=== PATIENT | male | born 1955 | race Caucasian/White ===

== ENCOUNTER 2020-12-18 10:57 | Day surgery (SDC) | payer OTHER, SELFPAY ==
[2020-12-15 13:48] VITALS: BMI 33.2
--- NOTE | 2020-12-16 15:05 | P.CONAN_ITS ---
Documented by User: Sidra Block 12/16/20 15:05 HPI - Anesthesia Eval Consult details Narrative: 65yo M for Colonoscopy PMFSH Past Medical History Medical History (Updated 12/18/20 @ 11:29 by Becca Garvin) Anxiety Diabetes Elevated cholesterol GERD (gastroesophageal reflux disease) HTN (hypertension) Oppositional defiant disorder Surgical History Surgical History H/O colonoscopy Social History Social History Patient Tobacco Use Status: Former Tobacco user Quit Date: >10 years ago Tobacco use type: Cigarette Use of substances other than those prescribed or required for medical reasons: No Advance Directives Information Provided: No Meds Allergies Allergy/AdvReac Type Severity Reaction Status Date / Time No Known Allergies Allergy Verified 12/18/20 10:58 Home Medications Medication Instructions Recorded Confirmed Last Taken Type alogliptin 6.25 mg PO DAILY 12/15/20 12/15/20 Unknown History atorvastatin 20 mg PO BEDTIME 12/15/20 12/15/20 Unknown History carbamazepine 600 mg PO BID 12/15/20 12/15/20 Unknown History insulin glargine [Lantus Solostar SUBCUT 12/15/20 12/15/20 Unknown History U-100 Insulin] lisinopril 5 mg PO DAILY 12/15/20 12/15/20 Unknown History metformin 1,000 mg PO BID 12/15/20 12/15/20 Unknown History multivitamin 1 tab PO DAILY 12/15/20 12/15/20 Unknown History omeprazole 20 mg PO DAILY 12/15/20 12/15/20 Unknown History trazodone 100 mg PO BEDTIME 12/15/20 12/15/20 Unknown History Exam Exam Date and Time: December 16, 2020 1505 Height,Weight and Vital Signs: Height 6 ft 3 in Weight 120.656 kg Assessment and Plan Assessment Anesthesia Assessment: Chart Reviewed Documented by User: Becca Garvin 12/18/20 11:33 [facility] Past Medical History Medical History (Updated 12/18/20 @ 11:29 by Becca Garvin) Anxiety Diabetes Elevated cholesterol GERD (gastroesophageal reflux disease) HTN (hypertension) Oppositional defiant disorder Family History Family history of problems with anesthesia: No Surgical History Surgical History H/O colonoscopy History of Problems with Anesthesia: No Social History Social History Patient Tobacco Use Status: Former Tobacco user Quit Date: >10 years ago Tobacco use type: Cigarette Use of substances other than those prescribed or required for medical reasons: No Advance Directives Information Provided: No Meds Allergies Allergy/AdvReac Type Severity Reaction Status Date / Time No Known Allergies Allergy Verified 12/18/20 10:58 Home Medications Medication Instructions Recorded Confirmed Last Taken Type alogliptin 6.25 mg PO DAILY 12/15/20 12/15/20 Unknown History atorvastatin 20 mg PO BEDTIME 12/15/20 12/15/20 Unknown History carbamazepine 600 mg PO BID 12/15/20 12/15/20 Unknown History insulin glargine [Lantus Solostar SUBCUT 12/15/20 12/15/20 Unknown History U-100 Insulin] lisinopril 5 mg PO DAILY 12/15/20 12/15/20 Unknown History metformin 1,000 mg PO BID 12/15/20 12/15/20 Unknown History multivitamin 1 tab PO DAILY 12/15/20 12/15/20 Unknown History omeprazole 20 mg PO DAILY 12/15/20 12/15/20 Unknown History trazodone 100 mg PO BEDTIME 12/15/20 12/15/20 Unknown History Exam Height,Weight and Vital Signs: Vital Signs Temp Pulse Resp BP Pulse Ox 12/18/20 11:24 98.1 F 105 H 18 140/88 H 95 Pertinent Lab Results Pertinent Lab Results: Lab Results 12/18/20 Range/Units 11:05 POC Glucose 133 H (60-115) mg/dL Airway Mallampati Class: II TM Dist: >3cm Neck ROM: Full Heart: RRR Lungs: CTAB Assessment and Plan Assessment Anesthesia Assessment: Anesthesia Plan Discussed and Chart Reviewed Final Anesthetic Review NPO: Yes ASA Class: III Final Preanesthetic Review: No Changes in Pt Med Stat, Meds/Allgs Chart Reviewed, Consent Obtained/Reviewed and Anes Risks/Benef Reviewed Patient Risk: Intermediate Procedure Risk: Low Assessment/Block/Sedation in SS: Assess/Block/Sedation-SS Anesthetic Plan Anesthetic Plan: MAC: Disposition: Standard PACU
[2020-12-18 11:17] LABS: Glucose, Whole Blood 133 mg/dL (60-115)
[2020-12-18 11:24] VITALS: BP 140/88; PULSE 105; RESP 18; TEMP 36.7; O2SAT 95
[2020-12-18] MEDS: Lactated Ringers 1,000 ML 100 ML IVCONT (11:25)
--- NOTE | 2020-12-18 11:35 | MHC.SHP ---
Pre-Procedural Eval Section A The patient is an INPATIENT: No Changes since office visit: No Cold of Flu in the past 2 weeks, No New Medical Problems, No Changes in Medication and No Patient answered all questions The History & Physical has been completed within 30 days and I have reviewed it.: Yes Section B Chief Complaint: screening Allergies: Allergies Allergy/AdvReac Type Severity Reaction Status Date / Time No Known Allergies Allergy Verified 12/18/20 10:58 Plan I have reviewed the history and physical and performed a pertinent physical examination on my patient. No changes have occurred unless specified.
--- NOTE | 2020-12-18 12:11 | PM.OP ---
Brief Operative Note Date of Service: 12/18/20 Pre-op diagnosis: screening Post-op diagnosis: same (colon polyps) Surgeon: Eusebio Vines Anesthesia: MAC Was an Care Team Coordinator Scheduler used for this Procedure?: No Estimated blood loss (mL): 0 Pathology: other (polyps x3) Condition: stable Disposition: PACU
[2020-12-18 12:15] VITALS: BP 120/74; PULSE 77; RESP 14; TEMP 36.3; O2SAT 96
[2020-12-18 12:28] VITALS: BP 147/89; PULSE 83; RESP 18; TEMP 36.3; O2SAT 96
--- NOTE | 2020-12-18 12:51 | OP_ITS ---
SURGEON: Eusebio Vines MD INDICATIONS: Colon cancer screening. PREOPERATIVE DIAGNOSIS: POSTOPERATIVE DIAGNOSIS: PROCEDURE PERFORMED: Colonoscopy to the terminal ileum with snare polypectomy. ESTIMATED BLOOD LOSS: COMPLICATIONS: ANESTHESIA: ASSISTANTS: SPECIMENS: MEDICATIONS: Monitored anesthesia care. DESCRIPTION OF PROCEDURE: History and physical performed. The risks and benefits of the procedure were explained to the patient. Informed consent was obtained. The patient was placed in the left lateral decubitus position. A digital rectal exam was performed and was found to be normal. The Olympus pediatric video colonoscope was introduced into the rectum and advanced to the cecum without difficulty. The cecum was identified by transillumination, palpation, and identification of ileocecal valve. Examination was performed and the scope was removed. He tolerated the procedure well and was taken to recovery area in stable condition. FINDINGS: The terminal ileum was examined and appeared normal. The visualized colonic mucosa was normal. The quality of the prep was poor with a large amount of formed stool and liquid stool that limited the sensitivity examination for detection of small polyps, this was washed and suctioned. A total of 3 polyps were identified and removed with a snare. All were sessile. 2 were located at 80 cm, one was located at 90 cm, all measured less than 10 mm. Retroflexed examination showed large internal hemorrhoids. IMPRESSION: 1. Colon polyps. 2. Limited examination. RECOMMENDATIONS: 1. Follow up the biopsy results. 2. Repeat examination in 6 to 12 months with 2-day prep. MD JOSEPH Anderson/ISABELA / [id number] [facility]
== END 2020-12-18 15:18 | disposition home or self-care (01) ==
PROVIDERS: PCP Internal Medicine; Visit Provider Internal Medicine Gastroenterology
PROC: 0DJD8ZZ Inspection of Lower Intestinal Tract, Via Natural or Artificial Opening Endoscopic (ICD-10-PCS; CPT 45378; principal; 2020-12-18 11:50)
DX: Z12.11 Encounter for screening for malignant neoplasm of colon (principal); D12.3 Benign neoplasm of transverse colon; D12.4 Benign neoplasm of descending colon; K64.8 Other hemorrhoids; K21.9 Gastro-esophageal reflux disease without esophagitis; I10 Essential (primary) hypertension; E11.9 Type 2 diabetes mellitus without complications; F91.3 Oppositional defiant disorder; E78.5 Hyperlipidemia, unspecified; Z79.4 Long term (current) use of insulin; Z79.899 Other long term (current) drug therapy; Z87.891 Personal history of nicotine dependence
CPT/HCPCS: 45385; 82947; 88305

== ENCOUNTER 2022-10-28 07:50 | Day surgery (SDC) | payer OTHER, SELFPAY ==
--- NOTE | 2022-10-27 10:04 | HO.ANESPROP2 ---
Documented by User: Sidra Block NP 10/27/22 10:05 HPI - Anesthesia Eval Consult details Narrative: 67yo M for Upper Endoscopy and Colonoscopy PMF Active Problems Active Problems: All Active Problems (Updated 12/18/20 @ 11:29 by Becca Garvin MD) Anxiety (Acute) Past Medical History Medical History (Updated 10/28/22 @ 08:29 by Jennifer Haskins RN) Anxiety Diabetes Elevated cholesterol GERD (gastroesophageal reflux disease) HTN (hypertension) Neuropathy Oppositional defiant disorder Family History Family history of problems with anesthesia: No Surgical History Surgical History H/O colonoscopy History of Problems with Anesthesia: No Social History Social History Patient Tobacco Use Status: Former Tobacco user Quit Date: >10 years ago Tobacco use type: Cigarette Use of substances other than those prescribed or required for medical reasons: No Are you DNR?: No Advance Directives: No Advance Directives Information Provided: Yes Recently lost weight without trying: No Nutrition Risks: No Nutritional Risk Meds Allergies Allergy/AdvReac Type Severity Reaction Status Date / Time No Known Allergies Allergy Verified 12/18/20 10:58 Home Medications Medication Instructions Recorded Confirmed Last Taken Type alogliptin 6.25 mg tablet 6.25 mg PO DAILY 12/15/20 12/15/20 Unknown History atorvastatin 20 mg tablet 20 mg PO BEDTIME 12/15/20 12/15/20 Unknown History carbamazepine 200 mg tablet 600 mg PO BID 12/15/20 12/15/20 Unknown History insulin glargine 100 unit/mL (3 subcut 12/15/20 12/15/20 Unknown History mL) subcutaneous pen (Lantus Solostar U-100 Insulin) lisinopril 5 mg tablet 5 mg PO DAILY 12/15/20 12/15/20 Unknown History metformin 500 mg tablet 1,000 mg PO BID 12/15/20 12/15/20 Unknown History multivitamin 1 tab PO DAILY 12/15/20 12/15/20 Unknown History omeprazole 20 mg tablet,delayed 20 mg PO DAILY 12/15/20 12/15/20 Unknown History release trazodone 100 mg tablet 100 mg PO BEDTIME 12/15/20 12/15/20 Unknown History Exam Exam Date and Time: October 27, 2022 1004 Assessment and Plan Assessment Anesthesia Assessment: Chart Reviewed Final Anesthetic Review Family History of Problems with Anesthesia: No History of Problems with Anesthesia: No Documented by User: Daria Mitchell MD 10/28/22 09:07 [facility] Past Medical History Medical History (Updated 10/28/22 @ 08:29 by Jennifer Haskins RN) Anxiety Diabetes Elevated cholesterol GERD (gastroesophageal reflux disease) HTN (hypertension) Neuropathy Oppositional defiant disorder Surgical History Surgical History H/O colonoscopy Social History Social History Patient Tobacco Use Status: Former Tobacco user Quit Date: >10 years ago Tobacco use type: Cigarette Use of substances other than those prescribed or required for medical reasons: No Are you DNR?: No Advance Directives: No Advance Directives Information Provided: Yes Recently lost weight without trying: No Nutrition Risks: No Nutritional Risk Meds Allergies Allergy/AdvReac Type Severity Reaction Status Date / Time No Known Allergies Allergy Verified 12/18/20 10:58 Home Medications Medication Instructions Recorded Confirmed Last Taken Type alogliptin 6.25 mg tablet 6.25 mg PO DAILY 12/15/20 12/15/20 Unknown History atorvastatin 20 mg tablet 20 mg PO BEDTIME 12/15/20 12/15/20 Unknown History carbamazepine 200 mg tablet 600 mg PO BID 12/15/20 12/15/20 Unknown History insulin glargine 100 unit/mL (3 subcut 12/15/20 12/15/20 Unknown History mL) subcutaneous pen (Lantus Solostar U-100 Insulin) lisinopril 5 mg tablet 5 mg PO DAILY 12/15/20 12/15/20 Unknown History metformin 500 mg tablet 1,000 mg PO BID 12/15/20 12/15/20 Unknown History multivitamin 1 tab PO DAILY 12/15/20 12/15/20 Unknown History omeprazole 20 mg tablet,delayed 20 mg PO DAILY 12/15/20 12/15/20 Unknown History release trazodone 100 mg tablet 100 mg PO BEDTIME 12/15/20 12/15/20 Unknown History Exam Airway Mallampati Class: III TM Dist: >3cm Neck ROM: Full Heart: rrr Lungs: cta Assessment and Plan Assessment Anesthesia Assessment: Anesthesia Plan Discussed Final Anesthetic Review NPO: Yes ASA Class: III Final Preanesthetic Review: No Changes in Pt Med Stat, Meds/Allgs Chart Reviewed, Consent Obtained/Reviewed and Anes Risks/Benef Reviewed Patient Risk: Intermediate Procedure Risk: Intermediate Anesthetic Plan Anesthetic Plan: MAC: Disposition: Standard PACU
--- OUTSIDE RECORDS SUMMARY | 2022-10-28 07:52 | XMS_ITS ---
Author Name Eusebio Vines Jr Address [address] [place] [address] [facility] Address [address] [place] [address] Care Team Providers Care Social Service Manager Name Role Phone Eusebio Vines Jr Unavailable PROBLEMS Type Condition ICD9-CM Code [id number] Code Onset Dates Condition Status SNOMED Code Problem Encounter for screening for malignant neoplasm of colon Z12.11 Active 865215988 Problem Gastroesophageal reflux disease without esophagitis K21.9 Active 85102086 5 Problem Encounter for other preprocedural examination Z01.818 Active 429252629 Problem intermediate designer (current) use of insulin Z79.4 Active [id number] ALLERGIES No Known Allergies ENCOUNTERS Encounter Location Date Diagnosis [facility] Outpatient [address] [place] [id number] Oct, [facility] [address] [facility] [address] [place] [phone] Sep, Gastroesophageal reflux disease without esophagitis K21.9 ; Encounter for screening for malignant neoplasm of colon Z12.11 and FPC (current) use of insulin Z79.[address] [facility] [address] [facility] [address] [place] [phone] Dec, [facility] Outpatient [address] [place] [id number] Dec, Colon cancer screening Z12.11 and Colon polyp K63.[address] [facility] [address] [facility] [address] [place] [phone] November, Encounter for other preprocedural examination Z01.818 ; Colon cancer screening Z12.11 and FPC (current) use of insulin Z79.[address] [facility] [address] [place] [address] November, [facility] [address] [place] [address] Aug, [facility] [address] [place] [phone] Aug, [facility] [address] [place] [address] Jul, [facility] Outpatient [address], [place] [phone] Jan, [facility] ER [address] [place], [place] [phone] Oct, IMMUNIZATIONS Vaccine Route Administration Date Status Influenza Unknown Mar 17, 2022 Administered Influenza Unknown Mar 17, 2020 Administered SOCIAL HISTORY Qualifiers Date Former Smoker REASON FOR REFERRAL FUNCTIONAL STATUS PLAN OF CARE Activity Details VITAL SIGNS Weight 268 lbs 2022-09-22 Weight 266 lbs 2020-12-03 Height 75 in 2022-09-22 Height 75 in 2020-12-03 BMI 33.49 kg/m2 2022-09-22 BMI 33.24 kg/m2 2020-12-03 Temperature 97.5 degrees Fahrenheit Temperature 98.0 degrees Fahrenheit Blood pressure systolic 00 mm Hg Blood pressure diastolic 00 mm Hg 2022-09 MEDICATIONS Medication Instructions Dosage Frequency Start Date End Date Duration Status Lisinopril 5 MG Orally Once a day TAKE 1 TABLET BY MOUTH EVERY DAY 24h Active Alcohol Prep 70 % USE EVERY DAY 30 Active Insulin Glargine 100 UNIT/ML as directed Active carBAMazepine 200 MG Orally Twice a day 3tablet 12h Active traZODone HCl 100 MG Orally Once a day 1 tablet at bedtime 24h 30 day(s) Active metFORMIN HCl 500 MG Orally EVERY MORNING TAKE 4 TABLET TWICE DAILY WITH BREAKFAST AND WITH DINNER Active Alogliptin Benzoate 6.25 MG as directed A ctive Atorvastatin Calcium 20 MG Orally Once a day 1 tablet 24h 30 day(s) Active metFORMIN HCl ER 500 MG TAKE 1 TABLET EVERY DAY 30 Active Multi-Vitamins - TAKE 1 TABLET EVERY DAY WITH FOOD 30 Active Omeprazole 20 MG TAKE 1 CAPSULE EVERY DAY BEFORE A MEAL 30 Active PROCEDURES Procedure Date Ordered Result Body Site BP NOT ASSESS PATIENT NOT ELIGIBLE December 03, 2020 TOBACCO NON-USER December 03, 2020 DOC RSN FOR NOT SCREEN/REC F/U HBP September 22, 2022 Pt scrn tbco id as non user September 22, 2022 DOC MEDS VERIFIED W/PT OR RE December 03, 2020 DOC MEDS VERIFIED W/PT OR RE September 22, 2022 COLORECTAL CA SCREEN DOC REV December 03, 2020 COLORECTAL CA SCREEN DOC REV September 22, 2022 LESION REMOVAL COLONOSCOPY December 18, 2020 RESULTS Name Result Date Reference Range Glucose, Whole Blood 2020-12-18 Glucose, Whole Blood 133 60-115 Pathology 2020-12-18 REASON FOR VISIT screening,gerd, Patient presents today for a colon screening, pathology, screening, PATIENT PRESENTS TODAY FOR SCREENING COLON, COVID Screen, PATIENT PRESENTS TODAY FOR colon recall, PATIENT IS NOT ELIGIBLE FOR [employer].., update, [employer] is not eligible/pt not in [facility]/waiting on callback from [facility] Providers Health Insurance Type Health Plan Insurance Address Health Plan Insurance Phone Health Plan Insurance Name Health Plan Coverage Dates Member ID Patient Relationship to Subscriber Patient Address Patient Phone Patient Name Patient Date of Subscriber ID Subscriber Name Subscriber Date of Group No [facility] [employer] [address] [facility] [id number] [facility] [employer] self [place] ZEBROWSK I [id number] MEDICAID OF [employer] [address] [facility] [address] MED[employer] OF [employer] self ANTONIETTA ZEBROWSK I [id number]
--- OUTSIDE RECORDS SUMMARY | 2022-10-28 07:52 | XMS_ITS | Continuity of Care Document ---
Author Name Unknown Organization [facility] Address [address] [place] [address]- Care Team Providers Care Fur Remodeler Name Role Phone Toshia Maguire MD Primary Care Physician Encounter [facility] R [id number] Date(s): 04/14/20 - 05/24/20 [facility] [address] [place] [address] Attending Physician: April Rene MD Admitting Physician: April Rene MD Referring Physician: Toshia Maguire MD Allergies, Adverse Reactions, Alerts Substance Reaction Severity Status NKA Active Medications metFORMIN 500 mg oral tablet 1 tablet = 500 mg, By Mouth, 2 times a day, # 180 tablet, 0 Refills, Maintenance, 03/19/19 13:58:11EDT, Tablet Start Date: 03/19/19 Status: Ordered NuLYTELY with Flavor Packs oral powder for reconstitution See Instructions, 240 mL By Mouth Q 20 min until completed, # 4,000 mL, 0 Refills, Maintenance, 03/19/19 14:10:45 EDT, REC Powder Start Date: 03/19/19 Status: Ordered Percocet-5 Tablet 1, tablet, By Mouth, Every 6 hours, Scheduled / PRN, 24, tablet, 0, 0, 09/17/08 0:18:58, as needed for pain, May take 2 tablets not to exceed 8 tablets a day, Print POLLY Number, [facility], [address] [place] [address], 54 Start Date: 09/17/08 Stop Date: 09/20/08 Status: Ordered Problem List Condition Effective Dates Status Health Status Inform ant Diabetes(Confirmed) Active Social History Social History Type Response Smoking Status Never smoker entered on: 01/01/18 Sex
--- OUTSIDE RECORDS SUMMARY | 2022-10-28 07:52 | XMS_ITS | Continuity of Care Document ---
Author Name Unknown Organization [facility] Address [address] [place] [address]- Care Team Providers Care Stockroom Selector Name Role Phone Toshia Maguire MD Primary Care Physician Encounter [facility] [place] [place] Date(s): 04/24/20 - 05/24/20 [facility] [address] [place] [id number] Attending Physician: Agueda Burks Admitting Physician: Agueda Burks Referring Physician: AdmtrAgueda Allergies, Adverse Reactions, Alerts Substance Reaction Severity [...] a day, Print POLLY Number, [facility], [address] [place] [address], 54 Start Date: 09/17/08 Stop Date: 09/20/08 Status: Ordered Problem List Condition Effective Dates Status Health Status Inform ant Diabetes(Confirmed) Active Social History Social History Type Response Smoking Status Never smoker entered on: 01/01/18 Sex
[2022-10-28 08:26] VITALS: BMI 34.3
[2022-10-28 08:41] VITALS: BP 144/87; PULSE 77; RESP 16; TEMP 36.4; O2SAT 97
[2022-10-28 08:54] LABS: Glucose, Whole Blood 203 mg/dL (60-115)
[2022-10-28] MEDS: Lactated Ringers 1,000 ML 100 ML IVCONT (08:59)
--- NOTE | 2022-10-28 09:40 | MHC.SHP ---
Pre-Procedural Eval Section A Date of Service: 10/28/22 Section B Chief Complaint: screening,reflux Details of Present Illness: see H&P no changes Relevant Family History (Specify if Yes): No Relevant Social History: None Present Medications: see Short Stay Collaborative assessment Medical History: No relevant PMH History of Previous Operations: No relevant previous surgery Allergies: Allergies Allergy/AdvReac Type Severity Reaction Status Date / Time No Known Allergies Allergy Verified 12/18/20 10:58 Review of Systems Sugical H&P ROS: Negative: Constitution, Cardiovascular, Respiratory, Neurological, Psychiatric, Hem-Onc, Allergic/Immunologic, Gastrointestinal, Genitourinary, Musculoskeletal, Integumentary, Endocrine and Eyes/Ears/Nose/Throat Exam Surgical H&P Exam: Normal: HEENT, Normal: Heart, Normal: Lungs, Normal: Extremities, Normal: Abdomen, Normal: Skin and Normal: Neurological Plan Diagnosis/Plan: Unchanged I have reviewed the history and physical and performed a pertinent physical examination on my patient. No changes have occurred unless specified. Time Spent With Patient Time: Total time managing care of this patient today ____ minutes.
--- NOTE | 2022-10-28 10:31 | PM.OP ---
Brief Operative Note Date of Service: 10/28/22 Pre-op diagnosis: gerd screening Procedure: egd colon Surgeon: Eusebio Vines Was an Multimedia Project Manager used for this Procedure?: No Estimated blood loss (mL): 5 Pathology: other Condition: stable Disposition: PACU
[2022-10-28 10:33] VITALS: BP 139/85; PULSE 72; RESP 15; TEMP 36.8; O2SAT 94
[2022-10-28 10:48] VITALS: BP 153/87; PULSE 69; RESP 17; TEMP 36.2; O2SAT 97
--- NOTE | 2022-10-28 11:15 | OP_ITS ---
DATE OF SERVICE: 10/28/2022 SURGEON: Eusebio Vines MD INDICATIONS: Colon cancer screening and gastroesophageal reflux disease. PREOPERATIVE DIAGNOSIS: POSTOPERATIVE DIAGNOSIS: PROCEDURE PERFORMED: Upper endoscopy with biopsy, colonoscopy to the terminal ileum. ESTIMATED BLOOD LOSS: COMPLICATIONS: ANESTHESIA: Monitored anesthesia care. ASSISTANTS: SPECIMENS: DESCRIPTION OF PROCEDURE: History and physical was performed. The risks and benefits of the procedure were explained to the patient. Informed consent was obtained. The patient was placed in the left lateral decubitus position. The Olympus video gastroscope was introduced into the esophagus, stomach, and duodenum. Examination was performed. The scope was removed. He was repositioned for colonoscopy. A digital rectal exam was performed and was found to be normal. The Olympus pediatric video colonoscope was introduced into the rectum and advanced to the cecum without difficulty. The cecum was identified by transillumination, palpation, and identification of the cecal valve. Examination was performed. The scope was removed. He tolerated both procedures well and returned to the recovery are in stable condition. FINDINGS: Upper endoscopy: 1. Esophagus: The esophagus was normal. Biopsies were obtained from the EG junction, which was slightly irregular. 2. Stomach: The stomach was normal. Antral biopsies were obtained to evaluate for H pylori. 3. Duodenum: The bulb and 2nd portion were normal. Colonoscopy: The terminal ileum was examined and appeared normal. The visualized colonic mucosa was normal. The quality of the prep was good. No polyps were identified. Retroflexed examination showed some small internal hemorrhoids. IMPRESSION: 1. Gastroesophageal reflux disease. 2. Colon cancer screening. RECOMMENDATION: 1. Follow up as needed. 2. The biopsy results will be reviewed when they are available. 3. Colon cancer screening is recommended in 10 years for average risk individuals. MD JOSEPH Anderson/MODL / [id number]
== END 2022-10-28 11:06 | disposition home or self-care (01) ==
PROVIDERS: PCP Internal Medicine; Visit Provider Internal Medicine Gastroenterology
PROC: (CPT 45378; principal; 2022-10-28 09:30)
DX: Z12.11 Encounter for screening for malignant neoplasm of colon (principal); Z86.010 Personal history of colon polyps; K64.8 Other hemorrhoids; K21.9 Gastro-esophageal reflux disease without esophagitis; I10 Essential (primary) hypertension; E78.5 Hyperlipidemia, unspecified; F91.3 Oppositional defiant disorder; F41.1 Generalized anxiety disorder; G47.00 Insomnia, unspecified; E11.9 Type 2 diabetes mellitus without complications; Z79.4 Long term (current) use of insulin; Z79.899 Other long term (current) drug therapy; Z87.891 Personal history of nicotine dependence
CPT/HCPCS: 45378; 43239; 82947; 88305; 88342